=== PATIENT | male | born 1950 | race Caucasian/White ===

== ENCOUNTER 2017-03-10 00:18 | Day surgery (SDC) | payer MEDICARE ==
[2017-03-10] VITALS (12 sets, daily range): BP systolic 87–148; BP diastolic 59–77; PULSE 44–55; RESP 11–14; O2SAT 96–99
[~2017-03-10] VITALS: Ht 180.3 cm; Wt 84.1 kg
[~2017-03-10 00:18] MED LIST: ALPH300T2 PO; ASPI-973 PO; ATOR10TA66 PO; CALC-140 PO; FINA5TAB9 PO; GLUC100016 PO; LORA10CA PO; LOSA25TA21 PO; MULT1CAP33 PO; SILD100T PO; TAMS0.4C98 PO
[2017-03-10] MEDS ORDERED: CHOL200047 PO (12:58)
--- NOTE | 2017-03-10 13:00 | NUR ---
Admit MANDY Admitted to [facility] about 1145. VSS. Denies pain. Tele SB. IVs started and labs sent. Procedure and recovery reviewed and verbalizes understanding. See EMR for further info and assessment.
[2017-03-10 13:09] LABS: BASOPHILS % (AUTO) 0.7 % (0-3); EOSINOPHILS % (AUTO) 3.2 % (0-5); MONOCYTES % (AUTO) 10.3 % (4-12); Mean Corpuscular Volume 91.9 fL (81-100); NEUTROPHILS % (AUTO) 50.5 % (40-74); Platelet Count 242 bil/L (150-400)
[2017-03-10] MEDS ORDERED: Heparin 1,000 Unit/mL 10 mL Inj ONE (13:52)
[2017-03-10] MEDS ORDERED: Heparin 1,000 Units/500 mL NS Premix IV ONE (13:52)
[2017-03-10] MEDS ORDERED: Nitroglycerin 50,000 mcg/250 mL D5W Premix IV ONE (13:52)
[2017-03-10] MEDS ORDERED: Heparin 5,000 Units/500 mL NS Premix IV ONE (13:54)
[2017-03-10] MEDS ORDERED: fentaNYL-PF 50 mCg/mL 2 mL Inj ONE (13:55)
--- NOTE | 2017-03-10 17:44 | NUR ---
Received/Recovery/Discharge Received from [facility] about 1450. Right groin stable. VSS. Denies pain. Bedrest complete at 1700 without change in assessment. Up to bathroom and in paul without change in groin. Discharge instructions given, see sheets. Pt. and verbalize understanding. Discharged ambulatory with and all belongings at 1735 in no distress.
--- NOTE | 2017-03-12 12:55 | CS94 ---
[address] [address] DIAGNOSTIC CARDIAC CATHETERIZATION PATIENT: PONCHO RANDOLPH : 1950 MR#: [id number] ADMIT: 03/10/2017 JOB ID: [id number] SERVICE DATE: 03/10/2017 CHIEF COMPLAINT: Abnormal stress test. PATIENT PRESENTATION: The patient is a delightful 66-year-old man with dyspnea on exertion. He had abnormal stress echo, and he is referred for cardiac catheterization to rule out hemodynamically significant coronary artery disease. PROCEDURES PERFORMED: 1. Left heart catheterization - selective coronary angiogram. 2. Hemodynamics measurements of left ventricular end-diastolic pressure. 3. Right common femoral artery vascular access under ultrasound guidance. 4. Ventriculogram was deferred because unfortunately our power injector was not working at that moment in time. METHOD: Following informed consent, patient was prepped and draped in usual sterile fashion. A 6-[place] sheath was placed in the right common femoral artery under ultrasound guidance. Sheath placement was confirmed via femoral angiogram. JL4 and JR4 catheters were used to engage left main and right coronary artery ostia, respectively. Hand injection and craniocaudal angulation was used to obtain selective angiograms. All exchanges were performed over a wire. Pigtail was placed in the left ventricle. Left ventricular end-diastolic pressure was recorded. There was no evidence of aortic stenosis based on pullback. At this point in time, the patient's groin was sealed via Perclose closure device. No complications during this procedure. Blood loss 10 cc. FINDINGS: Femoral angiogram: The right common femoral artery gives rise to SFA and profunda. There is no evidence of hemodynamically significant peripheral arterial disease. No evidence of contrast extravasation or dissection. Hemodynamics: Left ventricular end-diastolic pressure is 12 mmHg. There is no evidence of aortic stenosis based on pullback. Coronary angiograms: Left main is normal caliber vessel that gives rise circumflex, LAD, and ramus intermedius. LAD wraps around the apex. LAD gives rise to first diagonal and second diagonal. No obstructive lesions are seen. Circumflex is a nondominant vessel. It gives rise to small obtuse marginal branch. Ramus intermedius is a medium caliber vessel. It is best appreciated in AP portal view. No hemodynamically significant obstructive disease seen. Right coronary artery is a dominant vessel. It gives rise to PDA and a big posterolateral branch. No obstructive disease is seen. IMPRESSION: 1. Normal coronary angiogram. No evidence of hemodynamic significant coronary artery disease. 2. Normal filling pressure. 3. Normal right common femoral artery vascular access. PLAN: Continue current medications. Obtain chest x-ray to rule out pulmonary causes of shortness of breath. Thank you very much for the opportunity to participate in this patient's care. NALLELY
== END 2017-03-10 23:59 | disposition home or self-care (01) ==
LOC: SOUO 00:18
PROVIDERS: ATTEND Internal Medicine
DX: R94.39 Abnormal result of other cardiovascular function study (principal); R06.02 Shortness of breath; I10 Essential (primary) hypertension; E78.00 Pure hypercholesterolemia, unspecified; N40.1 Benign prostatic hyperplasia with lower urinary tract symptoms; I34.0 Nonrheumatic mitral (valve) insufficiency; I34.1 Nonrheumatic mitral (valve) prolapse; Z79.82 Long term (current) use of aspirin
CPT/HCPCS: 36415; 80048; 85025; 93005; 93458; 99152; C1760; C1769; J1200; J1644; J2060; J2250; J3010; J7030; Q9967